=== PATIENT | male | born 1980 | race Hispanic/Latino ===

== ENCOUNTER 2018-09-05 23:10 | Emergency (ER) | payer BC ==
[~2018-09-05] VITALS: Ht 177.8 cm; Wt 122.5 kg
--- OUTSIDE RECORDS SUMMARY | 2018-09-05 23:13 | XMS REPORT ---
Author Author [facility] Address Unknown Phone Unavailable Care Team Providers Care Agricultural Technician Name Role Phone Jose DANGELO Unavailable Unavailable Problems This patient has no known problems. Allergies, Adverse Reactions, Alerts This patient has no known allergies or adverse reactions. Medications This patient has no known medications. Results Test Description Test Time Test Comments Text Results Atomic Results Result Comments CXR 2 VIEW - HOPD 2018-06-02 01:43:00 [place] [address] Patient Name: EMERY ALARCON MR #: [id number] : 1980 Age/Sex: 37/M Req #: [id number] [facility] Physician: Ordered by: ANAMARIA DANGELO MD Report #: [id number] Location: [facility] Room/Bed: Procedure: [id number] HOPD/CXR 2 VIEW - HOPD Exam Date: 06/02/18 Exam Time: 8 REPORT STATUS: Signed CXR 2 VIEW - HOPD, 06/02/2018 12:00 AM Technique: CXR 2 VIEW - HOPD Comparison: None available. Clinical history: Left-sided chest pain Findings: Normal cardiomediastinal silhouette. No consolidation or edema. No pleural effusion or pneumothorax. No acute bony abnormality visualized. Impression: 1. Lines/Tubes: None 2. No acute abnormality. Signed by: Dr Alek Anthony MD on 06/02/2018 1:44 AM Dictated By: ALEK ANTHONY MD 3 Transcribed By: JASMEET on 06/02/18143 COPY TO: ANAMARIA DANGELO MD
--- OUTSIDE RECORDS SUMMARY | 2018-09-05 23:13 | XMS REPORT | Continuity of Care Document ---
Author Author [facility] Interface Address Unknown Phone Unavailable Problems Problem Status Onset Date Classification Date Reported Comments Source Medications Medication Details Route Status Patient Instructions Ordering Provider Order Date Source Allergies, Adverse Reactions, Alerts Substance Category Reaction Severity Reaction type Status Date Reported Comments Source No Known Drug Allergies Mild Allergy to Substance Active 07/23/2010 [facility] Immunizations Immunization Date Given Site Status Last Updated Comments Source Results Order Name Results Value Reference Range Date Interpretation Comments Source Vital Signs Vital Sign Value Date Comments Source Encounters Location Location Details Encounter Type Encounter Number Reason For Visit Attending Provider ADM Date DC Date Status Source Departed Emergency Room [id number] ANAMARIA DANGELO MD 06/02/2018 06/02/2018 [facility] Procedures Procedure Code Date Perfomer Comments Source
[2018-09-06] MEDS ORDERED: ONDANSETRON HCL INJ 2 MG/ML VIAL IV STA (00:45)
== END 2018-09-06 01:10 | disposition other institution (70) ==
LOC: FSED 23:10
DX: K91.841 Postprocedural hemorrhage of a digestive system organ or structure following other procedure (principal)
CPT/HCPCS: 80053; 85025; 85610; 99284

== ENCOUNTER → 2019-05-09 | Outpatient (CLI) | payer BC ==
[~2019-05-09] MED LIST: IOPAMIDOL 370 MG/ML 200 ML INFUS..BTL INJ ONE; METOPROLOL TARTRATE 25 MG TAB ONE; METOPROLOL TARTRATE INJ 1 MG/ML VIAL ONE; NITROGLYCERIN 0.4 MG SUBL ONE; SODIUM CHLORIDE 0.9% 100 ML 100 ML ONE
--- NOTE | 2019-05-09 14:00 | Diagnostic Imaging Report ---
EXAM: CALCIUM SCORE AND CORONARY CTA INDICATION: ^[id number] ^1000 ^CHEST PAIN COMPARISON: None. TECHNIQUE: Multi-detector CT technology was employed (64 MDCT Trendslide). Minimal slice thickness was performed following the intravenous administration of contrast material. The patient was premedicated with 50 mg by mouth metoprolol and 0.4 mg sublingual nitroglycerin for heart rate control and coronary dilation, respectively. IV CONTRAST: 100 mL of Isovue-370 ORAL CONTRAST: None COMPLICATIONS: None RADIATION DOSE: Total DLP: 1754 mGy*cm Estimated effective dose: (DLP x 0.015 x size factor) mSv CTDIvol has been reviewed. It is below the limits set by the Radiation Protocol Committee (RPC). For optimization of anatomic evaluation, multiplanar reconstruction, maximum intensity projections, and advanced 3-D off-line postprocessing were performed on a dedicated stand-alone workstation under the direct supervision of the interpreting physician. QUALITY: Fair FINDINGS: CALCIUM SCORE: The observed Agatston Calcium Score of 0 is at percentile 50% for subjects of the same age and gender who are free of clinical cardiovascular disease and treated diabetes. The Agatston score for each vessel is as follows: LM: 0 LAD: 0 LCx: 0 RCA: 0 DISTRIBUTION OF THE CALCIFIED PLAQUES: No identifiable calcified plaques in the coronary arteries. CORONARY ANATOMY: There is normal origin of the coronary arteries. Left Main Coronary Artery: The left main is normal sized vessel that bifurcates into the LAD and circumflex. There is no evidence of atherosclerotic changes or stenotic disease. Left Anterior Descending Coronary Artery: The LAD is a normal size vessel that wraps around the apex. It gives rise to 2 acute diagonal branches. There is no evidence of atherosclerotic changes or stenotic disease. Left Circumflex Coronary Artery: The LCX is a normal size vessel, which is non-dominant. It gives rise to 2 obtuse marginal branches. There is no evidence of atherosclerotic changes or stenotic disease. Right Coronary Artery: The RCA is a normal size vessel, which is dominant. It gives rise to a conus branch, AV jeremías branch, and 2 acute marginal branches. In its distal segment it bifurcates into the PDA and PV branch. There is no evidence of atherosclerotic changes or stenotic disease. CARDIAC MORPHOLOGY AND FUNCTION: The right and left atria and ventricles are morphologically normal. LIMITED CHEST: Limited views of the visualized chest show no abnormality within chest wall and mediastinum. No mediastinal lymphadenopathy. Mild bronchiectasis with peribronchial wall thickening and surrounding mild linear scarring in the right upper lobe on series 2, images 25-31 suggestive of sequela of prior infection. Additional mild linear scarring in the right middle lobe on image 122. The visualized portions of the ascending and descending thoracic aorta are of normal size. LIMITED ABDOMEN: Calcified granuloma in the spleen. BONES: No acute osseous abnormalities. IMPRESSION: 1. Total Agatston Calcium Score: 0 that corresponds to percentile 50%, representing no identifiable calcified plaques in the coronary arteries. 2. Normal coronary anatomy without evidence of atherosclerotic changes or stenotic disease. Reference: [email or web address] Signed by: Dr. Deya Palacios M.D. on 05/09/2019 1:57 PM
== END ==
LOC: CT 07:50
PROVIDERS: ATTEND Internal Medicine Cardiovascular Disease
DX: R07.9 Chest pain, unspecified (principal)
CPT/HCPCS: 75574; Q9967

== ENCOUNTER → 2020-03-22 | Day surgery (SDC) | payer BC, OTHER ==
[~2020-03-22] MED LIST changes: +DIAZEPAM5 MG PO; +FENTANYL CITRATE/PF 100MCG/2 ML INJ ONE; +HYOSCYAMINE 0.125 MG TAB ONE; -IOPAMIDOL 370 MG/ML 200 ML INFUS..BTL INJ ONE; +KETAMINE HCL INJ 50 MG/ML 10 ML VIAL ONE; +LISINOPRIL10 MG PO; +METOCLOPRAMIDE HCL 10 MG/2ML VIAL ONE; -METOPROLOL TARTRATE 25 MG TAB ONE; -METOPROLOL TARTRATE INJ 1 MG/ML VIAL ONE; +MIDAZOLAM HCL 2 MG/2 ML VIAL ONE; +NABUMETONE500 MG PO; -NITROGLYCERIN 0.4 MG SUBL ONE; +PANTOPRAZOLE 40 MG 10ML VIAL ONE; +PROPOFOL IV EMULSION 10 MG/ML 20 ML VIAL ONE; -SODIUM CHLORIDE 0.9% 100 ML 100 ML ONE; +TYLENOL WITH C1 EACH PO
--- NOTE | 2020-03-22 07:15 | NUR ---
SPIRITUAL CARE - Pre-Surgery Assessment: Pt in bed. Pt's at bedside. Pt reported supportive attention from family and friends. Intervention: Manager Environmental Affairs provided pastoral presence, hospitality, and sympathetic listening. Acquainted pt with availability of embedded systems designer while hospitalized. Outcome: Pt expressed appreciation for visit. No need for follow up indicated at this time. SINGH MARTHA [facility] Spiritual Care Department O: [phone] Addendum: 03/22/20 at 0809 by Singh Orellana CHAP CORRECTION: Pt was alone in room. No family present. [facility] Department O: [phone]
[2020-03-22 10:05] VITALS: BP 120/83
[2020-03-22 10:38] LABS: WBC,FECAL (FECAL LACTOFERRIN) NEGATIVE (NEGATIVE)
--- NOTE | 2020-03-22 11:34 | Operative Report ---
DATE OF PROCEDURE: 03/22/2020 SURGEON: Jose Dunlap MD PROCEDURES: EGD with biopsies and pyloric channel dilatation, and colonoscopy with polypectomy and biopsies. INDICATIONS FOR EGD: Acid reflux, bloating, excessive belching. INDICATIONS FOR COLONOSCOPY: Rectal bleeding, loose stools. MEDICATIONS: The patient was under MAC, please see anesthesiologist's note. PROCEDURE IN DETAIL: With the patient in left lateral decubitus position, a flexible fiberoptic Olympus gastroscope was introduced into the esophagus under direct visualization without any difficulty. There was some patchy erythema noted in distal esophagus. A minute nodule was noted at the GE junction, that was biopsied. The scope was then advanced with ease into the stomach. Mucosa overlying the antrum and the body revealed some patchy erythema and low-grade to moderate edema. Biopsies were obtained, sent to stain for H. pylori. The pylorus was strictured and negotiated there was some difficulty with the scope, it was dilated to size 20 mm per TTS balloon dilators. The scope was then advanced with ease all the way to the second portion of the duodenum. Biopsies were obtained from the proximal second portion and duodenal bulb to rule out sprue. Several nodules were noted in the duodenal bulb, biopsies were obtained. The scope was then withdrawn back into the stomach and retroflexed, mucosa overlying the fundus and cardia appeared to be within normal limits. The scope was then straightened out, it was subsequently withdrawn. The patient tolerated the procedure well. IMPRESSION: 1. Distal esophagitis, mild. 2. Minute nodule, GE junction, biopsied. 3. Gastritis, biopsied, biopsies sent to stain for H. pylori. 4. Pyloric channel stricture dilated to size 20 mm per TTS balloon dilators. 5. Duodenal bulb nodule, biopsied. 6. Rule out sprue. PLAN: 1. Follow up histology. 2. Initiate Protonix 40 mg one p.o. q.a.m. a.c. DESCRIPTION OF PROCEDURE: The patient was then turned around and after adequate lubrication of the anal canal, a flexible fiberoptic Olympus colonoscope was inserted into the rectum with ease and advanced all the way to the cecum. Mucosa overlying the cecum appeared to be within normal limits. The ileocecal valve was intubated and the scope was advanced into the terminal ileum. Biopsies were obtained. The scope was then withdrawn back into the colon. It was then withdrawn slowly and at approximately 1 cm pedunculated polyp was noted in the distal ascending colon and that was removed per snare electrocautery and site was hemoclipped x1. The transverse appeared to be within normal limits. Some patchy mild inflammatory changes were noted in the left colon and random biopsies were obtained. One polyp was hot biopsied from the descending colon. Diverticular disease was noted to involve the distal descending and the sigmoid colon. Two polyps were hot snared from the sigmoid colon. The scope was then retroflexed into the distal rectum. Small internal hemorrhoids were noted, none of which was actively bleeding. The scope was then straightened out, it was subsequently withdrawn. The patient tolerated procedure well. IMPRESSION: 1. Descending colon, approximately 1 cm pedunculated polyp, removed per snare electrocautery and site was hemoclipped x1. 2. Descending colon polyp, hot biopsied. 3. Diverticulosis. 4. Mild patchy inflammatory changes in the left colon. 5. Sigmoid colon polyps x2, hot snared. 6. Internal hemorrhoids, none actively bleeding. PLAN: 1. Follow up histology. 2. Follow up stool studies. 3. Initiate Bentyl 10 mg one p.o. t.i.d. 4. VSL #3 one p.o. b.i.d. 5. The patient will need a followup colonoscopy in 1 year. Jose Dunlap MD [facility] /[id number] cc: Garo Yu DO
[2020-03-22 14:52] LABS: C DIFFICILE TOXIN A&B AMP PROB NEGATIVE (NEGATIVE)
== END | disposition home or self-care (01) ==
LOC: OR 06:05
PROVIDERS: ATTEND Internal Medicine Gastroenterology
DX: K62.5 Hemorrhage of anus and rectum (principal); D12.5 Benign neoplasm of sigmoid colon; K29.70 Gastritis, unspecified, without bleeding; Q40.8 Other specified congenital malformations of upper alimentary tract; K20.9 Esophagitis, unspecified; K21.9 Gastro-esophageal reflux disease without esophagitis; I10 Essential (primary) hypertension; K31.89 Other diseases of stomach and duodenum; K31.1 Adult hypertrophic pyloric stenosis; K57.30 Diverticulosis of large intestine without perforation or abscess without bleeding; K64.8 Other hemorrhoids; K63.89 Other specified diseases of intestine; F41.9 Anxiety disorder, unspecified; Z01.810 Encounter for preprocedural cardiovascular examination; Z01.812 Encounter for preprocedural laboratory examination; Z11.59 Encounter for screening for other viral diseases; Z68.41 Body mass index [BMI] 40.0-44.9, adult; Z87.891 Personal history of nicotine dependence
CPT/HCPCS: 43239; 43245; 45380; 45384; 45385; 83630; 83993; 87045; 87177; 87328; 87493; 87635; 93005; C1726; C9113; J2250; J2704; J2765; J3010; 43450; 45378